=== PATIENT | male | born 1990 | race Hispanic/Latino ===

== ENCOUNTER 2025-04-06 21:06 | Emergency (ER) | payer SELFPAY ==
[2025-04-07] MEDS ORDERED: Ketorolac Tromethamine 30 MG (1 mL) VIAL ONE (01:03)
== END 2025-04-07 01:20 | disposition home or self-care (01) ==
LOC: ERS 21:06
DX: I80.8 Phlebitis and thrombophlebitis of other sites (principal)
CPT/HCPCS: 96372; J1885